=== PATIENT | female | born 1930 | race Caucasian/White ===

== ENCOUNTER → 2018-07-13 | Outpatient (CLI) | payer MEDICARE, OTHER ==
[~2018-07-13] MED LIST: ALEVE; ALEVE220 MG; ASA; ASPI-COR81 M1; ATIVAN0.5 MG; DILANTIN100 MG PO; GABAPENTIN300 MG; MECLIZINE HCL12.5 M1 PO; MICRO-K10 MEQ PO; NEURONTIN300 MG PO; PRILOSEC; PRILOSEC20 MG; PRILOSEC20 MG PO; RESTORIL30 MG; RESTORIL30 MG PO; SIMVASTATIN10 MG; [UNRECOGNIZED DRUG - OTHER]
--- NOTE | ~2018-07-13 | HM ---
[place], [place] HOLTER MONITOR REPORT NAME: VERONICA MCKAY UNIT #: [id number] ROOM: DOCTOR: CAITLYN DRAKE MD BIRTHDATE: [birth year] DOS: 07/15/2018 A 24-HOUR HOLTER MONITOR This study was recorded from 07/13/2018 through 07/14/2018. It was analyzed on 07/14/2018 and interpreted on 07/15/2018. INDICATIONS: Palpitations. FINDINGS: The patient was in sinus rhythm during the 24-hour monitor. Her average heart rate was 73, the heart rate in sinus rhythm ranged from 56 beats per minute to 115 beats per minute. Her maximum heart rate occurred around 12:17 in the afternoon. The patient had rare isolated PVCs. There was no ventricular tachycardia. The patient had occasional isolated PACs with two 4-beat runs of supraventricular tachycardia with a rate of up to 162 beats per minute instantaneously. Both episodes were self-limited. One occurred at 2:00 a.m. and the other at 11:09 a.m. The patient did return a diary and neither was associated with symptoms. The patient did complain of shakiness and dizziness, which she described as "like seizure spell." The first was at 9:48 a.m. and the patient was in sinus rhythm at a rate of 90 at that time, the second was at 10:46 a.m. and the patient was in sinus rhythm at a rate of 62. IMPRESSION: 1. Normal sinus rhythm. 2. Two brief episodes of SVT without apparent symptoms. 3. The patient complained of shakiness, dizziness and feeling "like seizure spells." She was in sinus rhythm without arrhythmias during those episodes. CAITLYN DRAKE MD CM:HOLTER:HOLTER MONITOR REPORT [id number] CAITLYN DRAKE MD
== END | disposition home or self-care (01) ==
LOC: CARD 11:30
DX: R00.2 Palpitations (principal)

== ENCOUNTER 2018-09-20 08:25 | Inpatient (IN) | payer MEDICARE, OTHER ==
[~2018-09-20] VITALS: Ht 157.4 cm; Wt 54.5 kg
--- NOTE | ~2018-09-20 | EKG ---
[place], [place] ELECTROCARDIOGRAM REPORT NAME: VERONICA MCKAY UNIT #: [id number] ROOM: 504 DOCTOR: RODERICK DRAFT REPORT BIRTHDATE: [birth year] [facility] Test Date: 2018-09-20 Test Time: 08:43:24 Pat Name: VERONICA MCKAY Department: Room: [facility] Gender: F Fibrous Plasterer: : 1930 Requested By: CHRIS MANUEL Order Number: [id number] Reading MD: New Hayden MD Measurements Intervals [place] Rate: 77 P: -33 ND: 153 QRS: 21 QRSD: 116 T: 97 QT: 371 QTc: 420 Interpretive Statements Sinus rhythm Nonspecific intraventricular conduction delay Borderline low voltage, extremity leads Nonspecific repol abnormality, lateral leads Minimal ST elevation, inferior leads No previous ECG available for comparison Electronically Signed On 09-20-2018 17:18:35 PST by New Hayden MD CM:EKGRPT:ELECTROCARDIOGRAM REPORT [id number] CHRIS CHIANG DRAFT REPORT CHRIS MANUEL DO
[2018-09-20 08:28] VITALS: BP 173/77
[2018-09-20 09:10] LABS: BASO % 0.9 % (0.0-1.0); EOS % 0.9 % (1.0-4.0); HEMATOCRIT 37.9 % (37.0-47.0); HEMOGLOBIN 12.4 g/dl (12.0-16.0); LYMPH # 1.1 10*3/uL (1.3-4.4); MEAN CELL VOLUME 93.6 fl (81.0-99.0); MEAN CORPUSCULAR HGB 30.6 pg (27.0-31.0); MEAN CORPUSCULAR HGB CONC 32.7 g/dl (33.0-37.0); MEAN PLATELET VOLUME 10.6 fl (9.6-12.3); MONO # 0.4 10*3/uL (0.1-1.0); MONO % 9.5 % (3.0-9.0); NEUT % 64.5 % (47.0-73.0); PLATELET COUNT AUTOMATED 191 10*3/uL (130-400); RED BLOOD COUNT 4.05 10*6/uL (4.10-5.10); RED CELL DISTRI WIDTH 13.8 % (0-14.5); WHITE BLOOD COUNT 4.6 10*3/uL (4.8-10.8)
[2018-09-20 09:19] LABS: ACT PARTIAL THROMBO TIME 22.7 SECONDS (20.8-31.5)
[2018-09-20 09:30] LABS: ALBUMIN 3.5 gm/dl (3.1-4.5); ALKALINE PHOSPHATASE 122 U/L (45-117); BUN 17 mg/dl (7-24); CHLORIDE 105 mmol/L (98-107); CREATININE 0.87 mg/dL (0.55-1.02); LIPASE 201 U/L (73-393); POTASSIUM 4.2 mmol/L (3.5-5.1); SGOT/AST 15 IU/L (3-35); SGPT/ALT 17 U/L (12-78); SODIUM 138 mmol/L (136-145); TOTAL PROTEIN 6.7 gm/dL (6.4-8.2)
[2018-09-20 09:34] LABS: TROPONIN I < 0.015 ng/ml (<0.045)
--- NOTE | 2018-09-20 09:48 | NUR ---
PT TO CT SCAN
--- NOTE | 2018-09-20 09:49 | NUR ---
PT HAS MADE ATTEMPT TO PROVIDE URINE SPECIMEN ON BEDSIDE COMMODE.
[2018-09-20 10:27] VITALS: BP 146/78
--- NOTE | 2018-09-20 10:57 | NUR ---
PT RPEORTS RELIEF AFTER FETNANYL.
--- NOTE | 2018-09-20 11:39 | NUR ---
PT STILL UNABLE TO PROVIDE URINE SPECIMEN. DRINKING ICE WATER AT THIS TIME. REPORTS NO BACK PAIN AT REST BUT DOES SITLL HAVE PAIN WITH EVEN THE SLIGHTEST MOVEMENT.
[2018-09-20 12:14] LABS: BILIRUBIN NEGATIVE (NEGATIVE); BLOOD NEGATIVE (NEGATIVE); CLARITY CLEAR (CLEAR); COLOR YELLOW (YELLOW); GLUCOSE NEGATIVE (NEGATIVE); KETONE NEGATIVE (NEGATIVE); LEUKO ESTERASE NEGATIVE (NEGATIVE); NITRITE NEGATIVE (NEGATIVE); PH 6.5 (5.0-9.0); UROBILINOGEN 0.2 E.U./dl (0.2-1.0)
[2018-09-20 12:37] LABS: BACTERIA TRACE; MUCOUS 1+
[2018-09-20 12:44] VITALS: BP 155/69
--- NOTE | 2018-09-20 13:04 | NUR ---
PT RE-MEDICATED PER EMAR FOR PAIN. WAITING FOR ADMISSION BED. FAMILY AT BEDSIDE.
[2018-09-20 13:50] VITALS: BP 160/72
--- NOTE | 2018-09-20 13:50 | NUR ---
Time: 1349 A 87 year old FEMALE admitted to 5E under services of THONY SOSA DO. Pt. arrived via VEHICLE from ER. Chief complaint: INTRACTABLE BACK PAIN. EDD MATOS
--- NOTE | 2018-09-20 13:50 | NUR ---
Time: 1349 A 87 year old FEMALE admitted to 5E under services of THONY SOSA DO. Pt. arrived via bed from ER. Chief complaint: BACK PAIN. LORENZA BOYCE
--- NOTE | 2018-09-20 14:20 | NUR ---
INFORMED THAT MEDICATIONS ARE VERIFIED.
[2018-09-20] MEDS ORDERED: VITAMIN B121000 MC1 PO (14:26)
[2018-09-20] MEDS ORDERED: Meclizine25 MG PO (14:27)
[2018-09-20 16:00] VITALS: BP 175/59
--- NOTE | 2018-09-20 18:40 | NUR ---
INFORMED THAT PATIENT IS AMBULATING NOW TO [facility] [place] WITH ASSIST C/O 06/22 PAIN. PRIOR TO MOVEMENT PAIN WAS "A LOT BETTER", PATEINT STATED THAT MOVEMENT IS CAUSING ALL HER PAIN.
[2018-09-20 20:00] VITALS: BP 162/62
--- NOTE | 2018-09-20 21:12 | NUR ---
PATIENT IS EXPERIENCING NAUSEA AND VOMITING. PRN ZOFRAN WAS ADMINISTERED. PATEINT WISHED TO HAVE DILANTIN AND GABAPENTIN ADMINISTERED EARLIER THAN ASSIGNED TIME. DILANTIN AND GABAPENTIN WERE VISIBLE IN EMESIS. DR. PEREZ WAS NOTIFIED. SHE INSTRUCTED TO NOT READMINISTER DOSES. WILL MONITOR
--- NOTE | 2018-09-20 22:00 | NUR ---
PRN ZOFRAN WAS EFFECTIVE. PT STATES THE N/V HAS STOPPED
[2018-09-21] VITALS: BP 120/70
--- NOTE | 2018-09-21 06:47 | NUR ---
PT REQUESTED AND RECIEVED PRN PAIN MED. NORCO WAS GIVEN. PT STATES BACK PAIN IS RATED AT AN 8.
[2018-09-21 07:30] LABS: BASO # 0.1 10*3/uL (0.0-0.1); BASO % 0.6 % (0.0-1.0); EOS # 0.1 10*3/uL (0.0-0.4); EOS % 0.7 % (1.0-4.0); HEMATOCRIT 37.2 % (37.0-47.0); HEMOGLOBIN 12.2 g/dl (12.0-16.0); LYMPH # 1.4 10*3/uL (1.3-4.4); LYMPH % 14.5 % (27.0-41.0); MEAN CELL VOLUME 93.7 fl (81.0-99.0); MEAN CORPUSCULAR HGB 30.7 pg (27.0-31.0); MEAN CORPUSCULAR HGB CONC 32.8 g/dl (33.0-37.0); MEAN PLATELET VOLUME 10.7 fl (9.6-12.3); MONO # 0.8 10*3/uL (0.1-1.0); MONO % 8.1 % (3.0-9.0); NEUT # 7.2 10*3/uL (2.3-7.9); NEUT % 75.8 % (47.0-73.0); PLATELET COUNT AUTOMATED 169 10*3/uL (130-400); RED BLOOD COUNT 3.97 10*6/uL (4.10-5.10); RED CELL DISTRI WIDTH 13.5 % (0-14.5); WHITE BLOOD COUNT 9.5 10*3/uL (4.8-10.8)
--- NOTE | 2018-09-21 07:53 | NUR ---
VITAL SIGNS STABLE, A&O X3, JOE, HEART SOUNDS NORMAL, LUNG SOUNDS CLEAR BILATERAL, CAP REFILL <3 SECONDS, NO EDEMA NOTED, ACTIVE BSX4, ABDOMEN SOFT, NOTENDER, NONDISTENDED, POSITIVE PEDAL PULSES, PPT STATED " PAIN IN HER BACK RATED 8 WHEN I MOVE AND THEY ALREADY GAVE ME PAIN MEDICATION". PT IS AMBULATORY WITH 1 ASSIST. BRENTON RAMOSCC
[2018-09-21 08:00] VITALS: BP 120/70
[2018-09-21 08:01] LABS: CHLORIDE 105 mmol/L (98-107); POTASSIUM 4.2 mmol/L (3.5-5.1); SODIUM 139 mmol/L (136-145)
[2018-09-21 08:21] LABS: BUN 18 mg/dl (7-24); CHOLESTEROL 209 mg/dL (<200); CREATININE 0.75 mg/dL (0.55-1.02); FREE T4 0.95 ng/dl (0.76-1.46); HDL CHOLESTEROL 91 mg/dl (40-60); LDL CHOLESTEROL 98 mg/dL (9-159); PHOSPHOROUS 3.4 mg/dL (2.5-4.9); TRIGLYCERIDES 98 mg/dl (<150); VLDL CHOLESTEROL 20 mg/dL (6-40)
--- NOTE | 2018-09-21 08:45 | NUR ---
MRI REGISTRATION PAPER FILLED OUT AND GIVEN TO THE WORK TAPE CONTROLLED MACHINE STITCHER TO BE FAXED. CYNDI ROJAS SPROMACC
[2018-09-21 08:54] LABS: VITAMIN D, 25-HYDROXY 14.9 ng/mL (30-100)
--- NOTE | 2018-09-21 10:40 | NUR ---
PT STABLE WHEN TRANSPORTED TO RADIOLIOGY VIA WHEEL CHAIR. BRENTON ROJAS SPNRCC
--- NOTE | 2018-09-21 11:12 | NUR ---
Studio Data Analyst in to talk to patient. Patient states lives at HOME with ALONE WITH GROWN KIDS CHECKING ON HER FREQUENTLY. There are 13 steps in the home. Physician: JOSE LUIS LEAL Pharmacy: [facility] Home health services: NONE Patient's level of ADLs: INDEPENDENT Patient has working utilities: YES DME: NONE Follow-up physician's appointment after d/c: WILL BE MADE BY HOSPITALIST NURSE DIRECTOR ON DISCHARGE Does patient want to access PORTAL?: NO Discharge plan PT STATES SHE LIVES HOME ALONE AND IS INDEPENDENT IN CARE. PT HAS VERY GOOD SUPPORT SYSTEM IN HER FAMILY AND STATES SHE PLANS TO GO HOME WHEN DISCHARGED. TALKED TO PT ABOUT HOME HEALTH AND SKILLED CARE BUT PT REFUSES BOTH, STATES I AM GOING HOME AND NO WHERE ELSE. DAUGHTER IN ROOM AND STATES SHE ATTEMPTED TO GET PT TO COME TO HER HOUSE FOR A WHILE BUT SHE ALSO REFUSES THAT. WILL CONTINUE TO FOLLOW.. ELIEL RANDLE
--- NOTE | 2018-09-21 11:59 | NUR ---
PT RETURNED BY WHEEL CHAIR FROM RADIOLOGY AND WAS STABLE UPON RETURN. BRENTON ROJAS SPCC
[2018-09-21 12:00] VITALS: BP 154/76
--- NOTE | 2018-09-21 12:41 | NUR ---
Patient approached for Occupational Therapy referral but patient pleasantly declined stating her back hurt too much and she just returned from an MRI. Pepper Patel OTR/l
--- NOTE | 2018-09-21 13:06 | NUR ---
PT RECIEVED NORCO 5MG PO FOR BACK PAIN. PT STATED " RATE OF 8 FOR BACK PAIN". WILL EVALUATE FOR EFFECTIVENESS. BRENTON ROJAS SPROMACC
--- NOTE | 2018-09-21 13:37 | NUR ---
Patient approached for OT evaluation but patient declined this date d/t back pain. OTR will attempt at a later date. Patient in agreement with this plan. Michel Patel OTR/l
--- NOTE | 2018-09-21 13:58 | NUR ---
PHYSICAL THERAPY Patient refuses PT this date due to pain. Attempted two times. Thank you for this referral. Clover Troy,PT
--- NOTE | 2018-09-21 14:00 | NUR ---
Patient states [place] effective. No signs of distress.
[2018-09-21 16:00] VITALS: BP 128/96
[2018-09-21 20:00] VITALS: BP 106/66
--- NOTE | 2018-09-21 22:50 | NUR ---
PATIENT RESTING COMFORTABLY IN HER BED AT THIS TIME. NO S/S OF DISTRESS. RESPIRATIONS EASY. NO COMPLAINTS OF PAIN. CALL LIGHT IS WITHIN REACH.
[2018-09-22] VITALS: BP 127/61
--- NOTE | 2018-09-22 00:34 | NUR ---
24 HR chart check completed.
--- NOTE | 2018-09-22 04:51 | NUR ---
PATIENT RESTING COMFORTABLY IN BED, EXPRESSES NO COMPLAINTS. RESP EASY. EYES CLOSED. CALL LIGHT WITHIN REACH.
[2018-09-22 08:00] VITALS: BP 132/50
--- NOTE | 2018-09-22 10:29 | NUR ---
RESTING IN BED WATCHING NEWS. DENIES BACK PAIN AT THIS TIME. PT UP AND AMBULATING IN HALLWAY. PT TOLERATED WELL. NO DISTRESS NOTED. DENIED PAIN AT THIS TIME. NO DYSPNEA NOTED.BED ALARM INTACT. CALL LIGHT IN REACH.
--- NOTE | 2018-09-22 11:09 | NUR ---
Occupational Therapy evaluation completed on 5 with full eval to follow. Precautions include fall risk d/t patient holding onto all surfaces when performing ambulation and functional mobility in an attempt to maintain balance. Patient is low complexity level 85955 via chart review, testing and evaluation. Patient reports and nurs confirms that patient is being discharged to home today. Patient educated in recommendations for use of wh walker in the home for balance and safety. Patient has a wh walker at home. Also educated patient in slowing her movements for safety and pacing. Patient can benefit from SN,OT,PT home health upon d/c today. Patient in agreement with this plan. Thank you for this referral. Pepper Patel Otr/L
--- NOTE | 2018-09-22 11:29 | NUR ---
SHIPYARD LABORER IN TO TALK WITH PT ABOUT GOING TO SKILLED FACILITY. PT REFUSES SKILLED CARE, STATES I TOLD THEM I WAS NOT GOING. PT STATES AND RN COMFIRMS THAT PT WAS OUT IN HALLWAY WITH RN AND WALKED LAP AROUND HALLWAY. TOLERATED FAIR. WILL CONTINUE TO FOLLOW.
--- NOTE | 2018-09-22 11:44 | NUR ---
PT DOES AGREE TO HOME HEALTH. MESSAGE SENT TO HOSPITALIST NURSE DIRECTOR SAGE FOR ORDER.
[2018-09-22 12:00] VITALS: BP 98/58
[2018-09-22] MEDS ORDERED: HYDROCODONE-AC1 EAC1 PO (12:41)
[2018-09-22] MEDS ORDERED: VITAMIN D5000 UNI1 PO (12:41)
[2018-09-22] MEDS ORDERED: PREDNISONE50 MG PO (12:42)
--- NOTE | 2018-09-22 13:40 | NUR ---
Discharge instructions reviewed with patient/family. Patient receptive and verbalizes understanding. Follow-up care arranged. Written instructions given to patient/family. SANDI JACINTO
--- NOTE | 2018-09-22 14:15 | NUR ---
Patient is being discharged to home requesting [facility] visiting nursing. Received order, faxed referral. Notified patient is discharged home today.
== END 2018-09-22 13:40 | disposition home health service (06) | DRG 445 ==
LOC: ED 08:25 → 5E 12:53 → EDHOLD 12:53 → 5E 13:31
PROVIDERS: Emergency Medicine; Internal Medicine; ADMIT Internal Medicine
DX: K80.50 Calculus of bile duct without cholangitis or cholecystitis without obstruction (principal); E87.2 Acidosis; M51.26 Other intervertebral disc displacement, lumbar region; Z96.651 Presence of right artificial knee joint; M19.90 Unspecified osteoarthritis, unspecified site; G47.00 Insomnia, unspecified; M48.061 Spinal stenosis, lumbar region without neurogenic claudication; W18.39XA Other fall on same level, initial encounter; R73.9 Hyperglycemia, unspecified; D72.810 Lymphocytopenia; Z90.49 Acquired absence of other specified parts of digestive tract; Z98.41 Cataract extraction status, right eye; Z83.3 Family history of diabetes mellitus; Z82.49 Family history of ischemic heart disease and other diseases of the circulatory system; Z80.42 Family history of malignant neoplasm of prostate; Z88.8 Allergy status to other drugs, medicaments and biological substances; Z79.899 Other long term (current) drug therapy; Z79.82 Long term (current) use of aspirin; Y93.89 Activity, other specified; Y92.89 Other specified places as the place of occurrence of the external cause; Y99.8 Other external cause status; E83.41 Hypermagnesemia

== ENCOUNTER 2018-10-04 12:53 | Inpatient (IN) | payer MEDICARE, OTHER ==
[~2018-10-04] VITALS: Ht 157.4 cm; Wt 53.5 kg
--- NOTE | ~2018-10-04 | EKG ---
[place], [place] ELECTROCARDIOGRAM REPORT NAME: VERONICA MCKAY UNIT #: [id number] ROOM: 409 DOCTOR: RODERICK DRAFT REPORT BIRTHDATE: [birth year] [facility] Test Date: 2018-10-04 Test Time: 13:19:00 Pat Name: VERONICA MCKAY Department: Room: 409 Gender: F Parole Or Probation Officer: : 1930 Requested By: ELIZABETH BARKER Order Number: [id number] Reading MD: New Hayden MD Measurements Intervals [place] Rate: 70 P: 4 KS: 161 QRS: 3 QRSD: 84 T: -18 QT: 363 QTc: 392 Interpretive Statements Sinus rhythm Nonspecific T abnormalities, anterior leads Compared to ECG 09/20/2018 08:43:24 T-wave abnormality now present Intraventricular conduction delay no longer present Early repolarization no longer present ST (T wave) deviation no longer present Electronically Signed On 10-05-2018 9:08:12 PST by New Hayden MD CM:EKGRPT:ELECTROCARDIOGRAM REPORT [id number] ELIZABETH VAUGHN DRAFT REPORT ELIZABETH BARKER M.D.
--- NOTE | 2018-10-04 07:00 | NUR ---
BEDSIDE REPORT OBTAINED FROM SAMUEL. PATIENT IS AWAKE & ALERT, VOICED NO COMPLAINTS. NO DISTRESS NOTED, RESP ARE ERND ON ROOM AIR. BED IS LOCKED IN LOWEST POSITION. BED ALARM MAINTAINED. CALL LIGHT LEFT WITHIN REACH.
[~2018-10-04 12:53] MED LIST changes: +HYDROCODONE-AC1 EAC1 PO; +Meclizine25 MG PO; +PREDNISONE50 MG PO; +VITAMIN B121000 MC1 PO; +VITAMIN D5000 UNI1 PO
[2018-10-04 12:58] VITALS: BP 143/74
[2018-10-04 13:26] LABS: BASO % 0.4 % (0.0-1.0); EOS % 0.5 % (1.0-4.0); HEMATOCRIT 35.5 % (37.0-47.0); LYMPH # 1.1 10*3/uL (1.3-4.4); LYMPH % 14.4 % (27.0-41.0); MEAN CELL VOLUME 91.3 fl (81.0-99.0); MEAN CORPUSCULAR HGB 30.8 pg (27.0-31.0); MEAN CORPUSCULAR HGB CONC 33.8 g/dl (33.0-37.0); MEAN PLATELET VOLUME 10.4 fl (9.6-12.3); MONO # 0.7 10*3/uL (0.1-1.0); MONO % 8.9 % (3.0-9.0); NEUT # 5.7 10*3/uL (2.3-7.9); NEUT % 75.4 % (47.0-73.0); PLATELET COUNT AUTOMATED 170 10*3/uL (130-400); RED BLOOD COUNT 3.89 10*6/uL (4.10-5.10); RED CELL DISTRI WIDTH 13.4 % (0-14.5); WHITE BLOOD COUNT 7.6 10*3/uL (4.8-10.8)
[2018-10-04 13:37] VITALS: BP 135/59
[2018-10-04 13:41] LABS: ALBUMIN 3.1 gm/dl (3.1-4.5); ALKALINE PHOSPHATASE 127 U/L (45-117); BUN 14 mg/dl (7-24); CHLORIDE 103 mmol/L (98-107); CREATININE 0.74 mg/dL (0.55-1.02); POTASSIUM 3.8 mmol/L (3.5-5.1); SGOT/AST 14 IU/L (3-35); SGPT/ALT 15 U/L (12-78); SODIUM 135 mmol/L (136-145); TOTAL PROTEIN 6.8 gm/dL (6.4-8.2)
[2018-10-04 14:17] LABS: BILIRUBIN NEGATIVE (NEGATIVE); BLOOD TRACE-INTACT (NEGATIVE); CLARITY SL CLOUDY (CLEAR); COLOR YELLOW (YELLOW); GLUCOSE NEGATIVE (NEGATIVE); KETONE NEGATIVE (NEGATIVE); LEUKO ESTERASE 1+ (NEGATIVE); NITRITE POSITIVE (NEGATIVE); PH 5.5 (5.0-9.0); UROBILINOGEN 0.2 E.U./dl (0.2-1.0)
[2018-10-04 14:35] LABS: BACTERIA 4+
[2018-10-04 15:13] VITALS: BP 138/63
[2018-10-04 16:02] VITALS: BP 140/70
[2018-10-04 16:30] VITALS: BP 150/69
--- NOTE | 2018-10-04 16:30 | NUR ---
Time: 1629 A 87 year old FEMALE admitted to under services of JULIAN SOSA DO, Pt. arrived via stretcher from ER. Chief complaint: LOWER BACK PAIN AFTER FALLING AT HOME. DL FUENTES
--- NOTE | 2018-10-04 16:53 | NUR ---
MED REC UPDATED/CORRECTED USING LIST PROVIDED BY THE PATIENT'S FAMILY.
--- NOTE | 2018-10-04 17:13 | NUR ---
MEDICATED WITH PRN PO NORCO FOR LOWER BACK PAIN.
--- NOTE | 2018-10-04 18:35 | NUR ---
PRN PO NORCO EFFECTIVE, PER PATIENT.
--- NOTE | 2018-10-04 19:00 | NUR ---
BEDSIDE REPORT OBTAINED FROM ELMIRA-ABBIE. PATIENT IS AWAKE & ALERT, VOICED NO COMPLAINTS. NO S&S OF DISTRESS NOTED, RESP ARE ERND ON ROOM AIR. BED IS LOCKED IN LOWEST POSITION, BED ALARM MAINTAINED. CALL LIGHT LEFT WITHIN REACH.
[2018-10-04 20:00] VITALS: BP 157/68
--- NOTE | 2018-10-04 21:00 | NUR ---
SLEEPING. CALL LIGHT LEFT WITHIN REACH.
[2018-10-05] VITALS: BP 117/51
--- NOTE | 2018-10-05 02:00 | NUR ---
SLEEPING. CALL LIGHT LEFT WITHIN REACH.
--- NOTE | 2018-10-05 04:00 | NUR ---
SLEEPING. CALL LIGHT LEFT WITHIN REACH.
--- NOTE | 2018-10-05 04:06 | NUR ---
24 HR chart check completed.
--- NOTE | 2018-10-05 06:09 | NUR ---
PATIENT MEDICATED WITH NORCO FOR C/O 04/22 BACK PAIN. WILL MONITOR.
[2018-10-05 06:22] LABS: BASO % 0.6 % (0.0-1.0); EOS # 0.1 10*3/uL (0.0-0.4); EOS % 1.1 % (1.0-4.0); HEMATOCRIT 39.8 % (37.0-47.0); HEMOGLOBIN 13.3 g/dl (12.0-16.0); LYMPH # 1.6 10*3/uL (1.3-4.4); LYMPH % 25.5 % (27.0-41.0); MEAN CELL VOLUME 92.1 fl (81.0-99.0); MEAN CORPUSCULAR HGB 30.8 pg (27.0-31.0); MEAN CORPUSCULAR HGB CONC 33.4 g/dl (33.0-37.0); MEAN PLATELET VOLUME 10.8 fl (9.6-12.3); MONO # 0.6 10*3/uL (0.1-1.0); MONO % 9.6 % (3.0-9.0); NEUT % 62.7 % (47.0-73.0); PLATELET COUNT AUTOMATED 181 10*3/uL (130-400); RED BLOOD COUNT 4.32 10*6/uL (4.10-5.10); RED CELL DISTRI WIDTH 13.3 % (0-14.5); WHITE BLOOD COUNT 6.4 10*3/uL (4.8-10.8)
[2018-10-05 06:26] LABS: ALBUMIN 3.2 gm/dl (3.1-4.5); ALKALINE PHOSPHATASE 131 U/L (45-117); BUN 11 mg/dl (7-24); CHLORIDE 103 mmol/L (98-107); CREATININE 0.73 mg/dL (0.55-1.02); POTASSIUM 3.9 mmol/L (3.5-5.1); SGOT/AST 14 IU/L (3-35); SGPT/ALT 15 U/L (12-78); SODIUM 134 mmol/L (136-145); TOTAL PROTEIN 7.1 gm/dL (6.4-8.2)
[2018-10-05 06:40] LABS: PHENYTOIN (DILANTIN) 11.7 ug/ml (10-20)
--- NOTE | 2018-10-05 07:14 | NUR ---
VERONICA MCKAY [id number] Please refer to the physician's history and physical for past medical history, comorbid conditions, and allergies. Diagnosis: UTI, UNABLE TO AMBULATE Antwon Score: 20,LOW OR NO RISK WOUND DESCRIPTIONS: Patient has excoriation noted to her lower back above buttocks. Patient stated she was using a heating pad she states she didn't get burnt but after the application she was very itchy and was scratching at it and this is was caused the areas to her lower back. She stated that after using the hydrocortisone cream that it help relieve the itching. Surface the patient is resting on: Isoflex SKIN PREVENTION RECOMMENDATION: 1. Pressure redistribution support surface as appropriate 2. Elevate heels 3. Remove boots/TEDS every shift and reapply 4. Head of bed 30 degrees as tolerated 5. Assess nutrition and hydration 6. Manage moisture 7. Avoid the use of containment devices while in bed 8. Use absorptive products on surfaces limit layers of linens on bed 9. Turn and reposition every 1-2 hours in bed and every 1 hour in chair as tolerated 10. Weight shifts every 15 minutes while up in chair 11. Offloading with pillows or device to keep heels elevated off bed 12. Monitor skin at least every shift 13. Inspect under medical devices twice a day WOUND TREATMENT RECOMMENDATIONS: Cleanse lower back with soap and water and apply hydrocortisone 1% cream daily. Recommend follow up for wound care in outpatient setting patient refused at this time stating she will care for it at home.
--- NOTE | 2018-10-05 07:56 | NUR ---
Nursing screen received and Occupational Therapy referral received. Thank you. Pepper Patel OTR/
[2018-10-05 08:00] VITALS: BP 144/74
--- NOTE | 2018-10-05 09:00 | NUR ---
Forestry Fire Aid in to talk to patient. Patient states lives at home with alone. There are few steps in the home. Physician: speedy trinh Pharmacy: [facility] Patient's level of ADLs: MINIMAL ASSIST Patient has working utilities: all working DME: walker Follow-up physician's appointment after d/c: will be made by hospitalist nurse director upon discharge Does patient want to access PORTAL?: no Discharge plan discussed with patient, patient lives at home alone, she has children that check on her on a regular basis, patient has [facility] also seeing her. patient has had falls at home discussed with her a short term half-way for rehab prior to going back home, patient was inagreement with this but wanted her children to choose which facility she would go to. she stated her family would be in sometime this am. case management/logistics planner will talk with family when they arrive.. HEMAL ROJAS
--- NOTE | 2018-10-05 09:30 | NUR ---
Occupational Therapy evaluation completed on 4 with full eval to follow. Precautions include fall risk, seizure precautions,back pain, slow rate of performance, acute debility.Patient is moderate complexity level 83626 via chart review, testing and evaluation. Recommend OT per POC and SNF to enable return home alone and independent. Thank you for this referral. Pepper Patel OTr/L
--- NOTE | 2018-10-05 09:37 | NUR ---
Patient seen for initial evaluation, see evaluation form for details. Recommended SNF upon discharge. ELIZABETH RennerT
[2018-10-05 12:00] VITALS: BP 143/76
--- NOTE | 2018-10-05 12:13 | NUR ---
case management visits with patient and son Ross, patient and son has agreed upon [facility] short term skilled, systems requirements planner will send referral to [facility] for patient is medically stable for discharge, patient will need a three consecutive night stay prior to going to [facility]
--- NOTE | 2018-10-05 12:17 | NUR ---
Patient requesting a referral to [facility]; Contacted facility and faxed referral, patient requires a 3 night stay.
--- NOTE | 2018-10-05 14:30 | NUR ---
OT NOTE Pt was seen this P.M. 1:1 for 15 minute OT session. Upon arrival pt was supine in bed with reports of 0/10 low back pain at rest and 4/10 with activity. Pt transferred supine to sit EOB with SBA. While sitting EOB pt donned her socks with supervision and stood while donning a gown with SBA for safety. Functional mobility completed into the bathroom with CGA and use of w/w for UE support. There pt stood sink side while washing her hands, face, and brushing her hair with CGA for safety. Functional mobility completed back to EOB with CGA where she transferred sit to supine with SBA. Pt was left supine in bed with call light in hand, tray table in place, and bed alarm activated for safety. Continue with rec D/C plan to SNF. ZACHARY Mitchell/Emil
--- NOTE | 2018-10-05 15:09 | NUR ---
PHYSICAL THERAPY Patient presented to therapy this afternoon in supine with head of bed elevated. Patient says her LBP level is way down from what it was this morning to a 4/10 this afternoon. Patient agrees to therapy session. Patient was identified by name and . Patient performed supine to sitting at EOB transfer with MIN A X 1. Patient transferred STS with MIN A X 1. Patient ambulated with W/W and CGA X 1 for 100' x 1. Patient transferred back to supine in bed with MIN A X 1. Patient was left in supine in bed with head of bed elevated, call light within reach, and bed alarm activated. Patient alarm activated by this DISTANCE LEARNING PROGRAM COORDINATOR and witnessed by ZACHARY Lyman. Patient was 1:1 with this DISTANCE LEARNING PROGRAM COORDINATOR for 15 minutes. Patient is recommended for SNF upon discharge. ILYA HERNANDEZ PTA
[2018-10-05 16:00] VITALS: BP 148/90
[2018-10-05 20:00] VITALS: BP 112/52
--- NOTE | 2018-10-05 22:00 | NUR ---
PATIENT ASLEEP. RESTORIL EFFECTIVE.
--- NOTE | 2018-10-05 22:05 | NUR ---
RESTORIL GIVEN ORDERED
--- NOTE | 2018-10-05 23:06 | NUR ---
24 HR chart check completed.
[2018-10-06] VITALS: BP 139/63
--- NOTE | 2018-10-06 02:52 | NUR ---
PT.WAS UP TO BATHROOM WITH ASSISTANCE AND REQUESTING PAIN MEDICATION FOR BACK PAIN RATED "7-8" NORCO GIVEN PER ORDER FOR PAIN. SEE MAR.
--- NOTE | 2018-10-06 03:50 | NUR ---
ASHLEY EFFECTIVE PT. RESTING WELL.
--- NOTE | 2018-10-06 04:12 | NUR ---
Recommend follow up for wound care in outpatient setting patient being discharge to another facility at this time.
[2018-10-06 08:00] VITALS: BP 123/78
--- NOTE | 2018-10-06 10:26 | NUR ---
NOTIFIED OF OTHRO RESULTS AND PATIENT BECOMIGN DIZZY WHEN STANDING NEW ORDERS RECIEVED
--- NOTE | 2018-10-06 10:40 | NUR ---
PHYSICAL THERAPY PATIENT SEEN 1:1 THIS AM FOR PHYSICAL THERAPY. PATIENT WAS ID BY NAME AND . PATIENT WAS SUPINE IN BED UPON ARRIVAL. PATIENT ABLE TO TRANSFER SUPINE TO SITTING EOB INDEP. PATIENT TRASNFERS STS WITH CUES FOR HAND PLACEMENT AND FORWARD WEIGHT SHIFT TO IMPROVE TECHNIQUE. NRSG PRESENT AT THIS TIME AND TOOK BP SEATED AND STANDING WIHT NO SIG CHANGE AFTER REPOSITIONING. PATIENT HAS NO C/O DIZZINESS, "PAIN/WEAKNESS" NOTED IN R LEG. PATIENT AMBULATED WITH FWW, CUES TO PUSH INSTEAD OF LIVE TRUCK OPERATOR WITH ADVANCEMENT SHE IS USE TO A SW AT HOME. 40' X1, REQUIRED STANDIG REST PERIOD ~1/2 WAY D/T PAIN IN LE. PATIENT USED BSC WHEN RETURNING TO ROOM, ABLE TO COMPLETE HYGEINGE AND DOFFING/DONNING OF BRIEF WITH SBA. PATIENT RETURNED TO SUPINE IN BED, ALARMS ON. PATIENT REQUESTING PAIN PILL, NRSG NOTIFIED. ELVISNET IN NAD UPON EXIT FROM ROOM. TREATMENT TIME 19MIN. JITENDRA SANCHES, SALON DESIGNER
[2018-10-06 12:00] VITALS: BP 149/64
--- NOTE | 2018-10-06 14:34 | NUR ---
OT NOTE Attempted to see pt this P.M. for OT session and upon arrival pt stated she had just finished with PT and was wanting to rest. Will check back at a later time/date. ZACHARY Mitchell/Emil
--- NOTE | 2018-10-06 14:38 | NUR ---
PHYSICAL THERAPY Patient presented to therapy in supine position with head of bed elevated and report of having a little LBP this afternoon. Patient agrees to therapy session. Patient was identified by name and . Patient transferred supine to sitting at EOB with MIN A X 1. Patient STS transfer with MIN A X 1. Patient ambulated 100' x 1 with W/W and CGA X 1 with verbal cues for upright posture and staying within KADE of walker. Patient transferred to bedside chair with MIN A X 1. Patient was left in bedside chair with LEs raised, call light within reach, and chair alarm tested and attached to patient. Patient was 1:1 with this DRAPERY SEAMSTRESS for 15 minutes total. Patient is reccommended for SNF upon discharge. ILYA HERNANDEZ DRAPERY SEAMSTRESS
[2018-10-06 16:00] VITALS: BP 118/62
[2018-10-06 19:45] VITALS: BP 146/72
[2018-10-06 20:00] VITALS: BP 151/63
[2018-10-07] VITALS: BP 154/66
[2018-10-07 07:47] VITALS: BP 136/76
--- NOTE | 2018-10-07 07:48 | NUR ---
PATIENT'S HEP LOCK IS RED AT TIP OF CATHETER & SLIGHTLY SWOLLEN & WAS NOT ABLE TO FLUSH. PATIENT EXPLAINED THAT IT NEEDS TO BE CHAGED BUT SHE IS REFUSING SAYING THAT THEY ARE DOING EVERYTHING TO HER EXCEPT HELPING HER BACK. THE PATIENT WANTS IT OUT ALL TOGETHER.
--- NOTE | 2018-10-07 08:29 | NUR ---
OT NOTE Attempted to see pt this A.M. for OT session and upon arrival pt was eating her breakfast. Will check back at a later time/date. ZACHARY Mitchell/Emil
[2018-10-07] MEDS ORDERED: HYDROCODONE-AC1 EAC1 PO (09:31)
[2018-10-07] MEDS ORDERED: CEFUROXIME AXE250 MG PO (09:32)
--- NOTE | 2018-10-07 10:03 | NUR ---
In to see patient, she stated she doesn't want to go to [facility], she wants to go to the [facility]. Contacted facility and faxed referral, asked if they could review and accept patient today as she is already discharged. Lucie from [facility] said that will not be a problem, she will follow up with Aidee or Elayne
--- NOTE | 2018-10-07 10:20 | NUR ---
OT NOTE Pt was seen this A.M. 1:1 for 20 minute OT session. Upon arrival pt was supine in bed, pt identified by name and . Pt had no complaints at this time. Pt transferred supine to sit EOB with SBA. While sitting EOB pt donned socks with supervision and donned new gown while standing with SBA. Functional mobility completed around the room with SBA and use of w/w for UE support. Pt then completed functional mobility into the bathroom where she transferred on/off standard commode with SBA and verbal prompts for proper hand placement. Clothing management completed with SBA and toilet hygiene completed IN while seated. Pt then stood sink side while washing her hands and face with SBA, pt required verbal prompts throughout to slow down due to being impulsive increasing risk of falls. Pt was able to tolerate aprox 5 minutes of static standing at a time before sitting due to fatigue. Pt was left sitting upright in recliner with call light in hand, tray table in place, and body alarm activated for safety. Continue with rec D/C plan to SNF. ZACHARY Mitchell/Emil
--- NOTE | 2018-10-07 10:32 | NUR ---
PHYSICAL THERAPY Patient presented to therapy in supine with report of feeling better overall. Patient agrees to therapy session. Patient was idnetified by name and . Patient performed supine to sitting at EOB transfer with MIN A X 1. Patient transferred STS with MIN A X 1 from EOB. Patient performed ambulation with W/W and CGA X 1 for 220' x 1 with verbal cues for proper posture and staying within KADE of walker. Patient required standing rest breaks as needed. Patient performed transfer into bedside chair with CGA X 1. Patient was left in bedside chair with call light within reach, chair alarm tested and attached to patient, and tray table in front of patient. Patient was 1:1 with this HANDKERCHIEF MAKER for 20 minutes total. Patient is recommended for SNF upon discharge. ILYA HERNANDEZ HANDKERCHIEF MAKER
[2018-10-07] MEDS ORDERED: COLACE100 MG PO (11:55)
[2018-10-07 12:00] VITALS: BP 147/73
--- NOTE | 2018-10-07 14:30 | NUR ---
[facility] PICKING PT UP FOR TRANSPORT AT 3PM TO [facility]. FAMILY IN ROOM AND AWARE. 4E OIL DRILLING ENGINEER AND RN INFORMED.
--- NOTE | 2018-10-07 15:09 | NUR ---
MSDIS Discharge instructions reviewed with patient/family. Patient receptive and verbalizes understanding. Follow-up care arranged. Written instructions given to patient/family. SAGE BABB
--- NOTE | 2018-10-07 16:05 | NUR ---
OCCUPATIONAL THERAPY CO-SIGN I approve of the Occupational Therapy notes written above. CHELSI CARABALLO OTR/Emil
--- NOTE | 2018-10-10 07:50 | NUR ---
PHYSICAL THERAPY CO-SIGN I approve of the Phyical Therapy notes written above. DONNA WILBURN PT
== END 2018-10-07 15:09 | disposition other institution (70) | DRG 312 ==
LOC: ED 12:53 → EDHOLD 16:00 → 4E 16:00
PROVIDERS: Emergency Medicine; Registered Nurse; ADMIT Internal Medicine
DX: I95.1 Orthostatic hypotension (principal); N39.0 Urinary tract infection, site not specified; E87.1 Hypo-osmolality and hyponatremia; E44.0 Moderate protein-calorie malnutrition; M48.00 Spinal stenosis, site unspecified; R26.2 Difficulty in walking, not elsewhere classified; R42 Dizziness and giddiness; R73.9 Hyperglycemia, unspecified; G40.909 Epilepsy, unspecified, not intractable, without status epilepticus; Z66 Do not resuscitate; Z51.5 Encounter for palliative care; M54.9 Dorsalgia, unspecified; G89.29 Other chronic pain; B96.20 Unspecified Escherichia coli [E. coli] as the cause of diseases classified elsewhere; H26.9 Unspecified cataract; Z96.651 Presence of right artificial knee joint; G47.00 Insomnia, unspecified; E55.9 Vitamin D deficiency, unspecified; W18.30XA Fall on same level, unspecified, initial encounter; Y93.89 Activity, other specified; Y92.89 Other specified places as the place of occurrence of the external cause; Y99.8 Other external cause status; Z88.8 Allergy status to other drugs, medicaments and biological substances; Z91.81 History of falling; Z90.49 Acquired absence of other specified parts of digestive tract; Z80.42 Family history of malignant neoplasm of prostate; Z82.49 Family history of ischemic heart disease and other diseases of the circulatory system; Z83.3 Family history of diabetes mellitus; Z79.899 Other long term (current) drug therapy; Z68.21 Body mass index [BMI] 21.0-21.9, adult

== ENCOUNTER → 2020-04-26 | Outpatient (CLI) | payer MEDICARE, OTHER ==
[~2020-04-26] MED LIST changes: +CEFUROXIME AXE250 MG PO; +COLACE100 MG PO
== END | disposition home or self-care (01) ==
LOC: US 12:19
DX: G40.909 Epilepsy, unspecified, not intractable, without status epilepticus (principal); R42 Dizziness and giddiness

== ENCOUNTER 2020-09-24 12:24 | Emergency (ER) | payer MEDICARE, OTHER ==
[~2020-09-24] VITALS: Ht 157.4 cm; Wt 53.5 kg
[2020-09-24 12:31] VITALS: BP 156/100
[2020-09-24 12:49] LABS: BASO % 0.3 % (0.0-1.0); HEMATOCRIT 36.7 % (37.0-47.0); LYMPH # 0.7 10*3/uL (1.3-4.4); LYMPH % 17.5 % (27.0-41.0); MEAN CELL VOLUME 91.8 fl (81.0-99.0); MEAN CORPUSCULAR HGB 29.5 pg (27.0-31.0); MEAN CORPUSCULAR HGB CONC 32.2 g/dl (33.0-37.0); MEAN PLATELET VOLUME 9.8 fl (9.6-12.3); MONO # 0.4 10*3/uL (0.1-1.0); MONO % 10.7 % (3.0-9.0); NEUT # 2.8 10*3/uL (2.3-7.9); PLATELET COUNT AUTOMATED 170 10*3/uL (130-400); RED CELL DISTRI WIDTH 13.6 % (0-14.5); WHITE BLOOD COUNT 3.9 10*3/uL (4.8-10.8)
[2020-09-24 13:05] LABS: ALBUMIN 3.2 gm/dl (3.1-4.5); ALKALINE PHOSPHATASE 186 U/L (45-117); BUN 11 mg/dl (7-24); CHLORIDE 100 mmol/L (98-107); CREATININE 0.94 mg/dL (0.55-1.02); POTASSIUM 3.9 mmol/L (3.5-5.1); SGOT/AST 40 IU/L (3-35); SGPT/ALT 40 U/L (12-78); SODIUM 131 mmol/L (136-145); TOTAL PROTEIN 6.9 gm/dL (6.4-8.2); TROPONIN I < 0.015 ng/ml (<0.045)
== END 2020-09-24 14:46 ==
LOC: ED 12:24
PROVIDERS: Emergency Medicine
DX: R55 Syncope and collapse (principal); Z88.8 Allergy status to other drugs, medicaments and biological substances; Z79.899 Other long term (current) drug therapy

== ENCOUNTER 2020-11-08 02:46 | Emergency (ER) | payer MEDICARE, OTHER ==
[2020-11-08 03:18] VITALS: BP 132/75
== END 2020-11-08 04:50 | disposition home or self-care (01) ==
LOC: ED 02:46
DX: S66.912A Strain of unspecified muscle, fascia and tendon at wrist and hand level, left hand, initial encounter (principal); S66.911A Strain of unspecified muscle, fascia and tendon at wrist and hand level, right hand, initial encounter; K21.9 Gastro-esophageal reflux disease without esophagitis; F32.9 Major depressive disorder, single episode, unspecified; F41.9 Anxiety disorder, unspecified; R56.9 Unspecified convulsions; E78.00 Pure hypercholesterolemia, unspecified; M19.90 Unspecified osteoarthritis, unspecified site; Z88.8 Allergy status to other drugs, medicaments and biological substances; Z79.899 Other long term (current) drug therapy; Z98.890 Other specified postprocedural states; Z90.49 Acquired absence of other specified parts of digestive tract; X58.XXXA Exposure to other specified factors, initial encounter; Y93.89 Activity, other specified; Y92.89 Other specified places as the place of occurrence of the external cause; Y99.8 Other external cause status

== ENCOUNTER → 2021-02-24 | Outpatient (CLI) | payer MEDICARE, OTHER ==
[~2021-02-24] MED LIST changes: +ALEVE220 M1 PO; +ASPIRIN ADULT L81 M2 PO; +MECLIZINE HCL25 M2 PO; +MEDROL DOSEPAK4 MG PO; +PHARMASSURE V500 MCG PO; +RESTORIL30 M1 PO; +TRIAMTERENE-HC1 EACH PO; +TYLENOL325 M3 PO; +VITAMIN D350 MC2 PO
== END | disposition home or self-care (01) ==
LOC: ORTHO 01:21
PROVIDERS: ATTEND Orthopaedic Surgery
DX: S72.451D Displaced supracondylar fracture without intracondylar extension of lower end of right femur, subsequent encounter for closed fracture with routine healing (principal); X58.XXXD Exposure to other specified factors, subsequent encounter; Z96.651 Presence of right artificial knee joint

== ENCOUNTER → 2021-03-24 | Outpatient (CLI) | payer MEDICARE, OTHER | END | disposition home or self-care (01) | LOC: ORTHO 00:14 | PROVIDERS: ATTEND Orthopaedic Surgery | DX: S72.491A Other fracture of lower end of right femur, initial encounter for closed fracture (principal); S72.451D Displaced supracondylar fracture without intracondylar extension of lower end of right femur, subsequent encounter for closed fracture with routine healing; X58.XXXA Exposure to other specified factors, initial encounter; Y93.89 Activity, other specified; Y92.89 Other specified places as the place of occurrence of the external cause; Y99.8 Other external cause status ==

== ENCOUNTER → 2021-04-11 | Outpatient (CLI) | payer MEDICARE, OTHER | END | disposition home or self-care (01) | LOC: ORTHO 00:16 | PROVIDERS: ATTEND Orthopaedic Surgery | DX: S72.451D Displaced supracondylar fracture without intracondylar extension of lower end of right femur, subsequent encounter for closed fracture with routine healing (principal); X58.XXXD Exposure to other specified factors, subsequent encounter; Z96.651 Presence of right artificial knee joint ==

== ENCOUNTER → 2021-04-25 | Outpatient (CLI) | payer MEDICARE, OTHER | END | disposition home or self-care (01) | LOC: ORTHO 00:29 | PROVIDERS: ATTEND Orthopaedic Surgery | DX: S72.451D Displaced supracondylar fracture without intracondylar extension of lower end of right femur, subsequent encounter for closed fracture with routine healing (principal); M97.8XXD Periprosthetic fracture around other internal prosthetic joint, subsequent encounter; X58.XXXD Exposure to other specified factors, subsequent encounter; Z98.890 Other specified postprocedural states ==

== ENCOUNTER → 2021-06-09 | Outpatient (CLI) | payer MEDICARE, OTHER | END | disposition home or self-care (01) | LOC: ORTHO 00:51 | PROVIDERS: ATTEND Orthopaedic Surgery | DX: S72.451D Displaced supracondylar fracture without intracondylar extension of lower end of right femur, subsequent encounter for closed fracture with routine healing (principal); X58.XXXD Exposure to other specified factors, subsequent encounter ==

== ENCOUNTER → 2021-11-26 | Outpatient (CLI) | payer MEDICARE, OTHER | LOC: WOUNDCARE 00:40 | PROVIDERS: ATTEND Nurse Practitioner Family | DX: L89.153 Pressure ulcer of sacral region, stage 3 (principal); L89.323 Pressure ulcer of left buttock, stage 3; M48.07 Spinal stenosis, lumbosacral region; R26.89 Other abnormalities of gait and mobility; G62.9 Polyneuropathy, unspecified; F41.9 Anxiety disorder, unspecified; Z87.81 Personal history of (healed) traumatic fracture; Z98.42 Cataract extraction status, left eye; Z98.41 Cataract extraction status, right eye; Z96.651 Presence of right artificial knee joint; Z98.890 Other specified postprocedural states; Z79.899 Other long term (current) drug therapy ==

== ENCOUNTER → 2021-12-10 | Outpatient (CLI) | payer MEDICARE, OTHER | LOC: WOUNDCARE 01:20 | PROVIDERS: ATTEND Nurse Practitioner Family | DX: L89.153 Pressure ulcer of sacral region, stage 3 (principal); L89.323 Pressure ulcer of left buttock, stage 3; M48.07 Spinal stenosis, lumbosacral region; R26.89 Other abnormalities of gait and mobility; G62.9 Polyneuropathy, unspecified; F41.9 Anxiety disorder, unspecified; Z87.81 Personal history of (healed) traumatic fracture; Z98.42 Cataract extraction status, left eye; Z98.41 Cataract extraction status, right eye; Z96.651 Presence of right artificial knee joint; Z98.890 Other specified postprocedural states; Z79.899 Other long term (current) drug therapy ==

== ENCOUNTER → 2021-12-25 | Outpatient (CLI) | payer MEDICARE, OTHER | END | disposition home or self-care (01) | LOC: WOUNDCARE 01:09 | PROVIDERS: ATTEND Nurse Practitioner Family | DX: L89.153 Pressure ulcer of sacral region, stage 3 (principal); L89.323 Pressure ulcer of left buttock, stage 3; M48.07 Spinal stenosis, lumbosacral region; R26.89 Other abnormalities of gait and mobility; G62.9 Polyneuropathy, unspecified; M48.00 Spinal stenosis, site unspecified; F41.9 Anxiety disorder, unspecified; Z87.81 Personal history of (healed) traumatic fracture; Z96.651 Presence of right artificial knee joint; Z98.41 Cataract extraction status, right eye; Z98.42 Cataract extraction status, left eye ==

== ENCOUNTER → 2022-01-14 | Outpatient (CLI) | payer MEDICARE, OTHER | END | disposition home or self-care (01) | LOC: WOUNDCARE 02:03 | PROVIDERS: ATTEND Nurse Practitioner Family | DX: L89.153 Pressure ulcer of sacral region, stage 3 (principal); M48.07 Spinal stenosis, lumbosacral region; R26.89 Other abnormalities of gait and mobility; G62.9 Polyneuropathy, unspecified; M48.00 Spinal stenosis, site unspecified; F41.9 Anxiety disorder, unspecified; Z87.81 Personal history of (healed) traumatic fracture; Z96.651 Presence of right artificial knee joint; Z98.41 Cataract extraction status, right eye; Z98.42 Cataract extraction status, left eye ==

== ENCOUNTER → 2022-01-28 | Outpatient (CLI) | payer MEDICARE, OTHER ==
[~2022-01-28] MED LIST changes: +NORVASC2.5 MG PO; +ZITHROMAX250 MG PO
== END | disposition home or self-care (01) ==
LOC: WOUNDCARE 00:46
PROVIDERS: ATTEND Nurse Practitioner Family
DX: L89.153 Pressure ulcer of sacral region, stage 3 (principal); G62.9 Polyneuropathy, unspecified; R26.89 Other abnormalities of gait and mobility; M48.07 Spinal stenosis, lumbosacral region; F41.9 Anxiety disorder, unspecified; Z87.81 Personal history of (healed) traumatic fracture; Z96.651 Presence of right artificial knee joint; Z98.41 Cataract extraction status, right eye; Z98.42 Cataract extraction status, left eye

== ENCOUNTER → 2022-03-25 | Outpatient (CLI) | payer MEDICARE, OTHER | END | disposition home or self-care (01) | LOC: WOUNDCARE 00:39 | PROVIDERS: ATTEND Nurse Practitioner Family | DX: L89.153 Pressure ulcer of sacral region, stage 3 (principal); M48.07 Spinal stenosis, lumbosacral region; R26.89 Other abnormalities of gait and mobility; F41.9 Anxiety disorder, unspecified; Z87.81 Personal history of (healed) traumatic fracture; Z96.651 Presence of right artificial knee joint; Z98.41 Cataract extraction status, right eye; Z98.42 Cataract extraction status, left eye; G62.9 Polyneuropathy, unspecified ==

== ENCOUNTER → 2022-04-08 | Outpatient (CLI) | payer MEDICARE, OTHER | END | disposition home or self-care (01) | LOC: WOUNDCARE 01:27 | PROVIDERS: ATTEND Nurse Practitioner Family | DX: L89.153 Pressure ulcer of sacral region, stage 3 (principal); G62.9 Polyneuropathy, unspecified; R26.89 Other abnormalities of gait and mobility; M48.07 Spinal stenosis, lumbosacral region; F41.9 Anxiety disorder, unspecified; Z87.81 Personal history of (healed) traumatic fracture; Z96.651 Presence of right artificial knee joint; Z98.41 Cataract extraction status, right eye; Z98.42 Cataract extraction status, left eye ==

== ENCOUNTER → 2022-05-06 | Outpatient (CLI) | payer MEDICARE, OTHER | END | disposition home or self-care (01) | LOC: WOUNDCARE 02:22 | PROVIDERS: ATTEND Nurse Practitioner Family | DX: L89.153 Pressure ulcer of sacral region, stage 3 (principal); G62.9 Polyneuropathy, unspecified; R26.89 Other abnormalities of gait and mobility; M48.07 Spinal stenosis, lumbosacral region; M48.00 Spinal stenosis, site unspecified; F41.9 Anxiety disorder, unspecified; Z87.81 Personal history of (healed) traumatic fracture; Z96.651 Presence of right artificial knee joint; Z98.41 Cataract extraction status, right eye; Z98.42 Cataract extraction status, left eye ==

== ENCOUNTER → 2022-06-04 | Outpatient (CLI) | payer MEDICARE, OTHER | END | disposition home or self-care (01) | LOC: WOUNDCARE 06-03 17:56 | PROVIDERS: ATTEND Nurse Practitioner Family | DX: L89.153 Pressure ulcer of sacral region, stage 3 (principal); G62.9 Polyneuropathy, unspecified; R26.89 Other abnormalities of gait and mobility; M48.07 Spinal stenosis, lumbosacral region; M48.00 Spinal stenosis, site unspecified; F41.9 Anxiety disorder, unspecified; Z96.651 Presence of right artificial knee joint; Z98.41 Cataract extraction status, right eye; Z98.42 Cataract extraction status, left eye; Z87.81 Personal history of (healed) traumatic fracture ==

== ENCOUNTER → 2022-06-18 | Outpatient (CLI) | payer MEDICARE, OTHER | END | disposition home or self-care (01) | LOC: WOUNDCARE 02:23 | PROVIDERS: ATTEND Nurse Practitioner Family | DX: L89.153 Pressure ulcer of sacral region, stage 3 (principal); R26.89 Other abnormalities of gait and mobility; G62.9 Polyneuropathy, unspecified; M48.07 Spinal stenosis, lumbosacral region; M48.00 Spinal stenosis, site unspecified; F41.9 Anxiety disorder, unspecified; Z87.81 Personal history of (healed) traumatic fracture; Z96.651 Presence of right artificial knee joint; Z98.41 Cataract extraction status, right eye; Z98.42 Cataract extraction status, left eye ==

== ENCOUNTER → 2022-06-25 | Outpatient (CLI) | payer MEDICARE, OTHER | END | disposition home or self-care (01) | LOC: NM 09:52 | PROVIDERS: ATTEND Nurse Practitioner Family | DX: L89.153 Pressure ulcer of sacral region, stage 3 (principal) ==

== ENCOUNTER → 2022-07-01 | Outpatient (CLI) | payer MEDICARE, OTHER | END | disposition home or self-care (01) | LOC: WOUNDCARE 00:53 | PROVIDERS: ATTEND Nurse Practitioner Family | DX: L89.153 Pressure ulcer of sacral region, stage 3 (principal); R26.89 Other abnormalities of gait and mobility; G62.9 Polyneuropathy, unspecified; M48.07 Spinal stenosis, lumbosacral region; M48.00 Spinal stenosis, site unspecified; F41.9 Anxiety disorder, unspecified; Z87.81 Personal history of (healed) traumatic fracture; Z96.651 Presence of right artificial knee joint; Z98.41 Cataract extraction status, right eye; Z98.42 Cataract extraction status, left eye ==

== ENCOUNTER → 2022-07-15 | Outpatient (CLI) | payer MEDICARE, OTHER | END | disposition home or self-care (01) | LOC: WOUNDCARE 00:32 | PROVIDERS: ATTEND Nurse Practitioner Family | DX: L89.153 Pressure ulcer of sacral region, stage 3 (principal); M48.07 Spinal stenosis, lumbosacral region; G62.9 Polyneuropathy, unspecified; R26.89 Other abnormalities of gait and mobility; F41.9 Anxiety disorder, unspecified; Z87.81 Personal history of (healed) traumatic fracture; Z96.651 Presence of right artificial knee joint; Z98.41 Cataract extraction status, right eye; Z98.42 Cataract extraction status, left eye ==

== ENCOUNTER → 2022-07-29 | Outpatient (CLI) | payer MEDICARE, OTHER | END | disposition home or self-care (01) | LOC: WOUNDCARE 00:31 | PROVIDERS: ATTEND Nurse Practitioner Family | DX: L89.153 Pressure ulcer of sacral region, stage 3 (principal); M48.07 Spinal stenosis, lumbosacral region; G62.9 Polyneuropathy, unspecified; R26.89 Other abnormalities of gait and mobility; F41.9 Anxiety disorder, unspecified; Z87.81 Personal history of (healed) traumatic fracture; Z96.651 Presence of right artificial knee joint; Z98.41 Cataract extraction status, right eye; Z98.42 Cataract extraction status, left eye ==

== ENCOUNTER → 2022-08-05 | Outpatient (CLI) | payer MEDICARE, OTHER | END | disposition home or self-care (01) | LOC: WOUNDCARE 00:56 | PROVIDERS: ATTEND Nurse Practitioner Family | DX: L89.153 Pressure ulcer of sacral region, stage 3 (principal); M48.07 Spinal stenosis, lumbosacral region; G62.9 Polyneuropathy, unspecified; R26.89 Other abnormalities of gait and mobility; F41.9 Anxiety disorder, unspecified; Z87.81 Personal history of (healed) traumatic fracture; Z96.651 Presence of right artificial knee joint; Z98.41 Cataract extraction status, right eye; Z98.42 Cataract extraction status, left eye ==

== ENCOUNTER → 2022-09-01 | Outpatient (CLI) | payer MEDICARE, OTHER | END | disposition home or self-care (01) | LOC: MRI 02:48 | PROVIDERS: ATTEND Internal Medicine Infectious Disease | DX: S31.000A Unspecified open wound of lower back and pelvis without penetration into retroperitoneum, initial encounter (principal); N85.2 Hypertrophy of uterus; M86.9 Osteomyelitis, unspecified; X58.XXXA Exposure to other specified factors, initial encounter; Y93.89 Activity, other specified; Y92.89 Other specified places as the place of occurrence of the external cause; Y99.8 Other external cause status ==

== ENCOUNTER → 2022-09-17 | Outpatient (CLI) | payer MEDICARE, OTHER | END | disposition home or self-care (01) | LOC: WOUNDCARE 06:00 | PROVIDERS: ATTEND Nurse Practitioner Family | DX: L89.153 Pressure ulcer of sacral region, stage 3 (principal); M48.07 Spinal stenosis, lumbosacral region; G62.9 Polyneuropathy, unspecified; R26.89 Other abnormalities of gait and mobility; F41.9 Anxiety disorder, unspecified; Z87.81 Personal history of (healed) traumatic fracture; Z96.651 Presence of right artificial knee joint; Z98.41 Cataract extraction status, right eye; Z98.42 Cataract extraction status, left eye ==